=== PATIENT | female | born 1990 | race African-American/Black ===

== ENCOUNTER 2018-01-07 14:46 | Emergency (ER) | payer SELFPAY ==
[2018-01-07] MEDS ORDERED: LIDOCAINE VISCOUS 2% SOLN 15 ML UDC ONE (16:57)
--- NOTE | 2018-01-07 17:02 | ER ---
Nurse's Notes [facility] Name: Bell Hanson Age: 27 yrs Sex: Female : 1990 Arrival Date: 01/07/2018 Time: 14:48 Bed 15 Private MD: Diagnosis: Acute pharyngitis Presentation: 01/07 15:22 Presenting complaint: Patient states: " Every time I try to drink something it really ph hurts, my throat feels really swollen." Reports sore throat, nausea, 1 episode of vomiting last night. Transition of care: patient was not received from another setting of care. Onset of symptoms was January 07, 2018. Care prior to arrival: None. 15:22 Method Of Arrival: Ambulatory ph 15:22 Acuity: FAISAL 4 ph Triage Assessment: 16:18 General: Appears in no apparent distress. comfortable, Behavior is calm, cooperative. rb1 16:18 EENT: Reports pain in right ear and throat when swallowing Pain is 10 out of 10 on a rb1 pain scale. since yesterday. 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 - Social history:: Smoking status: Patient/guardian denies using tobacco. Screenin:18 Abuse screen: Denies threats or abuse. Nutritional screening: No deficits noted. rb1 Tuberculosis screening: No symptoms or risk factors identified. Fall Risk None identified. Assessment: 16:18 General: Appears in no apparent distress. comfortable, Behavior is calm, cooperative, rb1 Reports fever for. Neuro: Level of Consciousness is awake, alert, obeys commands. 16:18 Pain: Complains of pain in right ear and throat Pain currently is 10 out of 10 on a rb1 pain scale. Pain began 1 day ago. Cardiovascular: Capillary refill < 3 seconds is brisk in bilateral fingers. Respiratory: Airway is patent Respiratory effort is even, unlabored, Respiratory pattern is regular, symmetrical, Denies cough, shortness of breath. GI: Reports nausea. : No signs and/or symptoms were reported regarding the genitourinary system. EENT: Throat is reddened. Derm: Skin is dry, Skin is normal, Skin temperature is warm. Musculoskeletal: Range of motion: intact in all extremities. 17:00 Reassessment: Patient appears in no apparent distress at this time. No changes from rb1 previously documented assessment. Vital Signs: 15:25 BP 109 / 77; Pulse 83; Resp 18; Temp 99.3; Pulse Ox 99% on R/A; Weight 63.5 kg; Height ph 5 ft. 5 in. (165.10 cm); Pain 10/10; 16:22 BP 108 / 73; Pulse 80; Resp 17; Pulse Ox 99% on R/A; rb1 15:25 Body Mass Index 23.30 (63.50 kg, 165.10 cm) ph ED Course: 14:48 Patient arrived in ED. as 15:12 Hyacinth Bravo FNP-C is [facility]. kb 15:12 Andrew Ott MD is Attending Physician. kb 15:25 Triage completed. ph 15:27 Arm band placed on. ph 16:18 Patient has correct armband on for positive identification. Bed in low position. Call rb1 light in reach. Side rails up X 1. Pulse ox on. NIBP on. 16:24 Miriam Smiley, RN is Primary Nurse. rb1 16:43 Strep Sent. rb1 17:08 No provider procedures requiring assistance completed. Patient did not have IV access rb1 during this emergency room visit. Administered Medications: 16:36 Drug: Viscous Lidocaine Liquid (4 %) 5 ml Route: Mucous Membrane; rb1 17:00 Follow up: Response: No adverse reaction rb1 Outcome: 17:01 Discharge ordered by MD. kb 17:08 Patient left the ED. rb1 17:08 Discharged to home ambulatory, with family. rb1 17:08 Condition: stable 17:08 Discharge instructions given to patient, Instructed on discharge instructions, follow up and referral plans. Demonstrated understanding of instructions, follow-up care, Prescriptions given X none Signatures: Hyacinth Bravo FNP-C FNP-Raisa Velásquez Patricia, RN RN Miriam Smiley, RN RN rb1 Corrections: (The following items were deleted from the chart) 17:27 16:18 General: Appears in no apparent distress. comfortable, Behavior is calm, rb1 cooperative, Reports fever for rb1 17:27 16:18 Neuro: Level of Consciousness is awake, alert, obeys commands, rb1 rb1
--- NOTE | 2018-01-07 17:02 | EDPHYS ---
Physician Documentation [facility] Name: Bell Hanson Age: 27 yrs Sex: Female : 1990 Arrival Date: 01/07/2018 Time: 14:48 Bed 15 Private MD: ED Physician Andrew Ott HPI: 01/07 16:52 This 27 yrs old Black Female presents to ER via Ambulatory with complaints of kb Toothache, Ear Pain, Sore Throat. 16:52 The patient presents with sore throat. The patient describes throat pain as constant. kb The patient has not experienced similar symptoms in the past. The patient has not recently seen a physician. 16:58 Onset: The symptoms/episode began/occurred yesterday. Severity of symptoms: At their kb worst the symptoms were moderate, in the emergency department the symptoms are unchanged. Modifying factors: The symptoms are alleviated by nothing, the symptoms are aggravated by swallowing, Patient's oral intake status: limited fluid intake, limited food intake, Denies contact with similarly ill indivduals. Associated signs and symptoms: Pertinent positives: earache, Sore throat vomiting. 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 - Social history:: Smoking status: Patient/guardian denies using tobacco. ROS: 16:51 Constitutional: Negative for fever, chills, and weight loss, Cardiovascular: Negative kb for chest pain, palpitations, and edema, Respiratory: Negative for shortness of breath, cough, wheezing, and pleuritic chest pain, Abdomen/GI: Negative for abdominal pain, nausea, vomiting, diarrhea, and constipation, MS/Extremity: Negative for injury and deformity, Skin: Negative for injury, rash, and discoloration, Neuro: Negative for headache, weakness, numbness, tingling, and seizure. 16:51 ENT: Positive for ear pain, sore throat. Exam: 16:51 Constitutional: This is a well developed, well nourished patient who is awake, alert, kb and in no acute distress. Head/Face: Normocephalic, atraumatic. Chest/axilla: Normal chest wall appearance and motion. Nontender with no deformity. No lesions are appreciated. Cardiovascular: Regular rate and rhythm with a normal S1 and S2. No gallops, murmurs, or rubs. Normal PMI, no JVD. No pulse deficits. Respiratory: Lungs have equal breath sounds bilaterally, clear to auscultation and percussion. No rales, rhonchi or wheezes noted. No increased work of breathing, no retractions or nasal flaring. Abdomen/GI: Soft, non-tender, with normal bowel sounds. No distension or tympany. No guarding or rebound. No evidence of tenderness throughout. Skin: Warm, dry with normal turgor. Normal color with no rashes, no lesions, and no evidence of cellulitis. MS/ Extremity: Pulses equal, no cyanosis. Neurovascular intact. Full, normal range of motion. Neuro: Awake and alert, GCS 15, oriented to person, place, time, and situation. Cranial nerves II-XII grossly intact. Motor strength 5/5 in all extremities. Sensory grossly intact. Cerebellar exam normal. Normal gait. 16:51 ENT: External ear(s): are unremarkable, Ear canal(s): are normal, TM's: are normal, Nose: is normal, Mouth: is normal, Posterior pharynx: Airway: normal, no evidence of obstruction, Tonsils: with erythema, Uvula: normal, midline, swelling, is not appreciated, erythema, that is moderate, exudate, is not appreciated. Vital Signs: 15:25 BP 109 / 77; Pulse 83; Resp 18; Temp 99.3; Pulse Ox 99% on R/A; Weight 63.5 kg; Height ph 5 ft. 5 in. (165.10 cm); Pain 10/10; 16:22 BP 108 / 73; Pulse 80; Resp 17; Pulse Ox 99% on R/A; rb1 15:25 Body Mass Index 23.30 (63.50 kg, 165.10 cm) ph MDM: 16:22 Patient medically screened. kb 16:51 Data reviewed: vital signs, nurses notes. Data interpreted: Pulse oximetry: on room air kb is 99 %. Interpretation: normal. 16:58 Counseling: I had a detailed discussion with the patient and/or guardian regarding: the kb historical points, exam findings, and any diagnostic results supporting the discharge/admit diagnosis, lab results, the need for outpatient follow up, a family practitioner, to return to the emergency department if symptoms worsen or persist or if there are any questions or concerns that arise at home. 01/07 16:23 Order name: Strep kb 01/07 16:58 Order name: Group A Streptococcus Rapid Sc; Complete Time: 16:58 EDMS Administered Medications: 16:36 Drug: Viscous Lidocaine Liquid (4 %) 5 ml Route: Mucous Membrane; rb1 17:00 Follow up: Response: No adverse reaction rb1 Disposition: 01/07/18 17:01 Discharged to Home. Impression: Acute pharyngitis. - Condition is Stable. - Discharge Instructions: Pharyngitis, [id number], Viral Infections, [id number]. - Medication Reconciliation Form, Thank You Letter, Antibiotic Education, Prescription Opioid Use form. - Follow up: Emergency Department; When: As needed; Reason: Worsening of condition. Follow up: Private Physician; When: 2 - 3 days; Reason: Recheck today's complaints, Continuance of care, Re-evaluation by your physician. Addendum: 01/11/2018 07:24 Co-signature as Attending Physician, Andrew Ott MD. g s Signatures: Dispatcher [employer] EDMS Hyacinth Bravo, MARKING MACHINE OPERATOR-C MARKING MACHINE OPERATOR-Dinora Kirk, RN RN Miriam Cox, RN RN rb1 Andrew Ott MD MD
== END 2018-01-07 17:08 | disposition home or self-care (01) ==
LOC: ER 14:46
DX: J02.9 Acute pharyngitis, unspecified (principal)
CPT/HCPCS: 87070; 87081; 99284